=== PATIENT | male | born 1975 | race Caucasian/White ===

== ENCOUNTER → 2016-09-22 | Outpatient (CLI) | payer BC ==
--- NOTE | 2016-09-22 10:57 | DIAGNOSTIC IMAGING REPORT ---
MRI OF THE CERVICAL SPINE IN FLEXION AND EXTENSION NO CONTRAST WITH CSF FLOW STUDY CLINICAL HISTORY: CHIARI MALFORMATION TYPE 1 COMPARISON STUDY: No previous studies for comparison. FINDINGS: Axial and sagittal T2-weighted imaging and CSF flow imaging was performed. Imaging was performed in the flexion extension and neutral positions. No intrinsic cervical cord lesions are visualized. C2-3 level: There is no evidence of disc bulge or focal herniation. There is no evidence of spinal or foraminal stenosis C3-4 level: There is a circumferential disc bulge present. There is slight effacement of the anterior subarachnoid space. There is no significant foraminal stenosis. There is no instability on flexion or extension. C4-5 level: There is no evidence of disc bulge or focal herniation. There is no evidence of spinal or foraminal stenosis C5-6 level: There is no evidence of disc bulge or focal herniation. There is no evidence of spinal or foraminal stenosis C6-7 level: There is no evidence of disc bulge or focal herniation. There is no evidence of spinal or foraminal stenosis C7-T1 level: There is no evidence of disc bulge or focal herniation. There is no evidence of spinal or foraminal stenosis There is a Chiari 1 malformation. The cerebellar tonsils extend 9 mm below the foramen magnum. CSF flow is visualized anterior and posterior to the cord. It is most pronounced in flexion. It is mild to moderately diminished and extension. IMPRESSION: 1. Chiari 1 malformation 2. C3-4 disc bulge. Mild effacement of the anterior subarachnoid space 3. No intrinsic cervical cord lesions are visualized 4. No evidence of instability on flexion or extension 5. CSF flow is visualized both anterior and posterior to the cord. Electronically signed by: Brandon Moyer M.D. 09/22/2016 10:56 AM Dictated Date/Time: 09/22/2016 10:37 AM
--- NOTE | 2016-09-22 11:58 | DIAGNOSTIC IMAGING REPORT ---
LUMBAR SPINE CSF CLINICAL HISTORY: 41 years-old Male presenting with CHIARI MALFORMATION TYPE 1. TECHNIQUE: Multisequence, multiplanar MR imaging of the lumbar spine was performed for a CSF flow study. COMPARISON: None. FINDINGS: Lumbar vertebral bodies maintain normal height, alignment, and bone marrow signal intensity. Intervertebral disc desiccation at L3-4 through L5-S1, although disc heights are maintained. No significant degenerative change. No ar evidence of neural foraminal or spinal canal stenosis. The spinal cord in is in good position at the superior endplate of L1. Cauda equina normal. CSF flow is visualized both anterior and posterior to the spinal cord. IMPRESSION: 1. Mild degenerative change in the lower lumbar spine. No other significant abnormality. Normal CSF flow. Electronically signed by: David Seals M.D. 09/22/2016 11:57 AM Dictated Date/Time: 09/22/2016 11:51 AM
--- NOTE | 2016-09-22 12:19 | DIAGNOSTIC IMAGING REPORT ---
THORACIC FLEX/EXT CSF FLOW CLINICAL HISTORY: 41 years-old Male presenting with CHIARI MALFORMATION TYPE 1. TECHNIQUE: Multisequence, multiplanar MR imaging of the thoracic spine was performed as part of a CSF flow study. COMPARISON: None. FINDINGS: Vertebral bodies maintain normal height, alignment, and bone marrow signal intensity with the exception of degenerative endplate changes at T11-12 anteriorly. Intervertebral disc spaces preserved with the exception of T11-12, where there is mild disc desiccation. No other significant degenerative change. No spinal canal or neural foraminal narrowing. Spinal cord maintains normal signal intensity and morphology. On evaluation of CSF flow, normal flow posterior flow of CSF around the spinal cord noted throughout the thoracic levels. However, anterior flow is best appreciated in the mid to lower thoracic region. This is likely due to positioning of the thoracic cord along the ventral thecal sac in the upper thoracic spine. No convincing evidence of obstruction to CSF flow. No visualized syrinx. Paraspinal soft tissues and remaining visualized structures of the thorax and upper abdomen are grossly normal. IMPRESSION: 1. CSF flow is within the expected range of normal given the positioning of the thoracic spinal cord. No significant abnormality. Electronically signed by: David Seals M.D. 09/22/2016 12:18 PM Dictated Date/Time: 09/22/2016 12:11 PM
== END | disposition home or self-care (01) ==
LOC: C.MRIBC 07:54
PROVIDERS: ATTEND Family Medicine
DX: G93.5 Compression of brain (principal); R51 Headache; R42 Dizziness and giddiness; R41.0 Disorientation, unspecified; R53.83 Other fatigue; M50.20 Other cervical disc displacement, unspecified cervical region

== ENCOUNTER → 2017-10-15 | Outpatient (CLI) | payer BC ==
--- NOTE | 2017-10-15 12:44 | DIAGNOSTIC IMAGING REPORT ---
MRI OF THE BRAIN WITHOUT CONTRAST CLINICAL HISTORY: CHIARI MALFORMATION COMPARISON STUDY: MRI of the cervical spine September 22, 2016. TECHNIQUE: Utilizing a 1.5 Radha magnet and dedicated coil, multiplanar, multiecho imaging of the brain was performed without IV contrast. FINDINGS: There are no foci of restricted diffusion to suggest acute infarct. No acute intracranial hemorrhage, midline shift or mass effect is present. There is no intracranial mass on this unenhanced exam. Ventricular system is normal. There are expected postoperative findings consistent with interval suboccipital craniectomy for Chiari decompression. No operative bed fluid collection is noted. A suspected prominent perivascular space within the left basal ganglia is noted. A few punctate foci of white matter T2 hyperintensity are noted. Calvarial signal is maintained. Note is made of prominent subarachnoid spaces surrounding the bilateral optic nerves. IMPRESSION: 1. No acute intracranial findings. 2. Expected findings following suboccipital craniectomy for Chiari decompression. 3. Prominent subarachnoid spaces surrounding the bilateral optic nerves. This can be seen in normal patients. However, the findings could be correlated with clinical evidence for papilledema as intracranial hypertension can have this imaging appearance. 4. A punctate white matter T2 hyperintense foci which may reflect minimal small vessel disease or sequela of migraine headaches. Electronically signed by: Luan Montoya M.D. 10/15/2017 12:43 PM Dictated Date/Time: 10/15/2017 12:36 PM
== END | disposition home or self-care (01) ==
LOC: C.MRI 11:27
PROVIDERS: ATTEND Family Medicine
DX: G93.5 Compression of brain (principal); R94.02 Abnormal brain scan